=== PATIENT | female | born 2005 | race Two or more races ===

== ENCOUNTER 2025-06-16 23:40 | Emergency (ER) | payer OTHER ==
[~2025-06-16] VITALS: Ht 91.4 cm; Wt 40.8 kg
[2025-06-17 04:19] VITALS: BP 122/62; TEMP 98.2; O2SAT 98
== END 2025-06-17 04:19 | disposition home or self-care (01) ==
LOC: ER 23:43
DX: S00.81XA Abrasion of other part of head, initial encounter (principal); E03.9 Hypothyroidism, unspecified; W01.198A Fall on same level from slipping, tripping and stumbling with subsequent striking against other object, initial encounter; Y93.89 Activity, other specified; Y92.89 Other specified places as the place of occurrence of the external cause; Y99.0 Civilian activity done for income or pay